=== PATIENT | male | born 1960 | race Caucasian/White ===

== ENCOUNTER 2017-03-30 23:39 | Emergency (ER) | payer SELFPAY ==
[~2017-03-30] VITALS: Ht 172.7 cm; Wt 58.0 kg
[~2017-03-30 23:39] MED LIST: SYMB160A INH; VENTAER INH
[2017-03-30 23:43] VITALS: BP 165/95; PULSE 78; RESP 32; O2SAT 91
[2017-03-30 23:44] VITALS: BP 182/104; PULSE 79; RESP 24; TEMP 98.1; O2SAT 94
--- NOTE | 2017-03-30 23:49 | PD ---
HPI Chief Complaint: Respiratory Distress Time Seen by Provider: 23:43 Travel History International Travel<30 days: No Contact w/Intl Traveler<30days: No Traveled to known affect area: No History of Present Illness HPI The patient is a 57 year old male who presents to the [facility] emergency department with a history of shortness of breath. The patient has a known history of COPD. The patient reports that he is currently out of his rescue inhaler. The patient is initially difficult to obtain a history from due to shortness of breath. The patient has difficulty completing sentences. The patient is noted to have tripoding with accessory muscle use. Once the patient was able to provide more history and was feeling improved after nebulizer treatments, the patient reports that he ran out of his inhalers a month ago. He reports that he has been occasionally borrowing other peoples inhalers. He reports that a week ago he quit smoking. At the most he has had 2 cigarettes per day a week ago. The patient denies having a primary care physician. He reports that his COPD became much worse 4 days ago when he developed a clear rhinorrhea, cough productive of clear sputum, and a mild sore throat. The patient reports that he does have a history of cocaine use. He denies having any chest pain, however he reports tightness with taking a deep breath. Otherwise on review of systems, the patient denies having any known recent fevers,neck pain, abdominal pain, vomiting, diarrhea, urinary symptoms, or neurologic symptoms. [facility] Past Medical History Narrative Medical The patient's past medical history is significant for COPD, anxiety disorder, cocaine use Blood Disorders: No Anxiety: Yes Depression: No Cancer: No Cardiovascular Problems: No COPD: Yes Endocrine: No Genitourinary: No Immune Disorder: No Musculoskeletal: No Neurologic: No Psychiatric: No Reproductive: No Respiratory: Yes Past Surgical History Narrative Surgical The patient's past surgical history is significant for right elbow surgery. Abdominal Surgery: No Cardiac Surgery: No Ear Surgery: No Endocrine Surgery: No Eye Surgery: No Genitourinary Surgery: No Gynecologic Surgery: No Oral Surgery: No Thoracic Surgery: No Social History Alcohol Use: No Tobacco Use: No Substance Use: No Allergies-Medications (Allergen,Severity, Reaction): Coded Allergies: No Known Allergies (Unverified , 03/30/17) Reported Meds & Prescriptions Reported Meds & Active Scripts Active Levaquin (Levofloxacin) 750 Mg Tablet 750 Mg PO DAILY 9 Days Medrol Dosepak (Methylprednisolone) 4 Mg Dspk 4 Mg PO DIRECTED Per Pharmacist direction Ventolin Hfa 18 GM Inh (Albuterol Sulfate) 90 Mcg/Act Aer 2 Puff INH Q4-6H PRN Symbicort Inh (Budesonide/Formoterol Fumarate) 160-4.5 Mcg/Act Aero 1 Puff INH Q12HR Review of Systems Except as stated in HPI: all other systems reviewed are Neg General / Constitutional: No: Fever Eyes: No: Visual changes HENT: No: Headaches Cardiovascular: Positive: Chest Pain or Discomfort (chest tightness), Dyspnea on exertion Respiratory: Positive: Cough, Shortness of Breath Gastrointestinal: No: Abdominal Pain Genitourinary: No: Dysuria Musculoskeletal: No: Pain Skin: No Rash Neurologic: No: Weakness, Focal Abnormalities, Change in Mentation, Slurred Speech, Sensory Disturbance Psychiatric: No: Depression Endocrine: No: Polydipsia Hematologic/Lymphatic: No: Easy Bruising Physical Exam Narrative General: The patient is a well-developed well-nourished male, acutely short of breath with conversational dyspnea, tripoding and accessory muscle use. Head and Neck exam: Head is normocephalic atraumatic. Eyes: EOMI, pupils are equal round and reactive to light. Nose: Midline septum with pink mucous membranes Mouth: Dentition unremarkable. Moist mucus membranes. Posterior oropharynx is not erythematous. No tonsillar hypertrophy. Uvula midline. Airway patent. Neck: No palpable lymphadenopathy. No nuchal rigidity. No thyromegaly. Cardiovascular: Regular rate and rhythm without murmurs, gallops, or rubs. Lungs: Expiratory wheezes audible throughout bilateral lung pimentel anteriorly and posteriorly with a prolonged expiratory phase of breathing, accessory muscle use , tripoding also noted. The patient has no paroxysmal abdominal breathing. Abdomen: Soft, without tenderness to palpation in all 4 quadrants of the abdomen. No guarding, rebound, or rigidity. Normal bowel sounds are audible. No tenderness on palpation of McBurney's point. Extremities: No clubbing, cyanosis, or edema. 2+ pulses in all 4 extremities. No calf tenderness on palpation. Back: No costovertebral angle tenderness to palpation. Neurologic Exam: Grossly nonfocal. Skin Exam: No rash noted. Intact skin that is warm and dry. Data Data Last Documented VS Vital Signs Date Time Temp Pulse Resp B/P (MAP) Pulse Ox O2 Delivery O2 Flow Rate FiO2 03/30/17 23:57 77 20 98 Nasal Cannula 4.00 03/30/17 23:44 98.1 Orders Orders Complete Blood Count With Diff (03/30/17:52) Comprehensive Metabolic Panel (03/30/17:52) B-Type Natriuretic Peptide (03/30/17:52) Act Partial Throm Time (Ptt) (03/30/17:52) Prothrombin Time / Inr (Pt) (03/30/17:52) Magnesium (Mg) (03/30/17:52) Ckmb (Isoenzyme) Profile (03/30/17) Troponin I (03/30/17) Urinalysis - C+S If Indicated (03/30/17:52) Iv Access Insert/Monitor (03/30/17:52) Electrocardiogram (03/30/17:) Ecg Monitoring (03/30/17) Oximetry (03/30/17:) Oxygen Administration (03/30/17:52) Chest, Single Ap (03/30/17:52) Sodium Chloride 0.9% Flush (Ns Flush) (03/31/17 00:00) Methylprednisolone So Succ Inj (Solumedr (03/31/17 00:00) Albuterol-Ipratropium Neb (Duoneb Neb) (03/31/17 00:00) CKMB (03/31/17 00:01) CKMB% (03/31/17 00:01) Levofloxacin 500 Mg Premix Inj (Levaquin (03/31/17 02:15) Ed Discharge Order (03/31/17 02:51) Labs Laboratory Tests Test 03/31/17 00:01 White Blood Count 8.4 TH/MM3 Red Blood Count 5.49 MIL/MM3 Hemoglobin 17.8 GM/DL Hematocrit 52.2 % Mean Corpuscular Volume 95.2 FL Mean Corpuscular Hemoglobin 32.4 PG Mean Corpuscular Hemoglobin Concent 34.0 % Red Cell Distribution Width 13.3 % Platelet Count 252 TH/MM3 Mean Platelet Volume 8.6 FL Neutrophils (%) (Auto) 38.1 % Lymphocytes (%) (Auto) 24.7 % Monocytes (%) (Auto) 9.8 % Eosinophils (%) (Auto) 24.5 % Basophils (%) (Auto) 2.9 % Neutrophils # (Auto) 3.2 TH/MM3 Lymphocytes # (Auto) 2.1 TH/MM3 Monocytes # (Auto) 0.8 TH/MM3 Eosinophils # (Auto) 2.1 TH/MM3 Basophils # (Auto) 0.2 TH/MM3 CBC Comment DIFF FINAL Differential Comment Prothrombin Time 10.8 SEC Prothromb Time International Ratio 1.0 RATIO Activated Partial Thromboplast Time 30.0 SEC Blood Urea Nitrogen 13 MG/DL Creatinine 1.14 MG/DL Random Glucose 84 MG/DL Total Protein 9.2 GM/DL Albumin 4.3 GM/DL Calcium Level 9.5 MG/DL Magnesium Level 2.1 MG/DL Alkaline Phosphatase 79 U/L Aspartate Amino Transf (AST/SGOT) 37 U/L Alanine Aminotransferase (ALT/SGPT) 38 U/L Total Bilirubin 0.3 MG/DL Sodium Level 137 MEQ/L Potassium Level 4.6 MEQ/L Chloride Level 104 MEQ/L Carbon Dioxide Level 28.7 MEQ/L Anion Gap 4 MEQ/L Estimat Glomerular Filtration Rate 67 ML/MIN Total Creatine Kinase 336 U/L Creatine Kinase MB 6.8 NG/ML Creatine Kinase MB % 2.0 % Troponin I LESS THAN 0.02 NG/ML B-Type Natriuretic Peptide 13 PG/ML MDM Medical Decision Making Medical Screen Exam Complete: Yes Emergency Medical Condition: Yes Medical Record Reviewed: Yes Interpretation(s) Last Impressions Chest X-Ray 03/30/17 1944 Signed Impressions: Service Date/Time: Thursday, March 30, 2017 23:56 - CONCLUSION: No acute disease. Tariq Kaur MD Differential Diagnosis COPD exacerbation, versus pneumonia, versus new-onset congestive heart failure, versus pulmonary embolism, versus acute coronary syndrome Narrative Course During the course of the patients emergency department visit, the patients history, examination, and differential diagnosis were reviewed with the patient. The patient was placed on a cardiac catheterization technician with oximetry and frequent blood pressure monitoring. The patient had IV access obtained and blood work sent for analysis. The patient was placed on a cardiac catheterization technician with oximetry and blood pressure monitoring. An ECG was done on arrival. The patient's ECG reveals a sinus rhythm heart rate of 71, no acute ST segment elevation or depression, T waves are inverted in V1. The patient was initially provided Solu-Medrol 125 mg IV, DuoNeb 3. On reexamination, the patient is resting comfortably, good air movement. The patient is able to provide his history. Wheezing has resolved. The patient was given Levaquin 750 mg IV 1. The patients laboratory studies were reviewed and remarkable for a white count of 8.4, hemoglobin 17.8, platelets 252 with 9.8 monocytes, CMP is remarkable for an anion gap of 4, GFR 67, CPK 336 with an MB percent of 2, troponin I less than 0.02, BNP is 13, PT PTT within normal limits Radiology studies were reviewed and remarkable for a chest x-ray that shows no acute cardiopulmonary disease. The patient will be discharged home with refills of his rescue inhaler, Symbicort. The patient will be given a prescription for Levaquin and a Medrol Dosepak taper. The patient is instructed to follow-up with a [facility] regarding his primary care. The patient is resting comfortably and feels better, is alert and in no distress. The patients results and examination findings were discussed with the patient. The repeat examination is unremarkable and benign. The history, exam, diagnostic testing, and current condition do not suggest any significant pathology to warrant further testing, continued ED treatment, admission, or surgical evaluation at this point. The vital signs have been stable. The patient does not have uncontrollable pain, intractable vomiting, or other significant symptoms. The patient's condition is stable and appropriate for discharge. The patient will pursue further outpatient evaluation with a primary care physician or other designated or consulting physician as indicated in the discharge instructions. The patient expressed understanding and was agreeable with this plan. Diagnosis Primary Impression: COPD exacerbation Additional Impression: Bronchitis Referrals: [facility] Primary Care Physician Patient Instructions: Acute Bronchitis (ED), COPD (Chronic Obstructive Pulmonary Disease) (ED), General Instructions Med/Other Pt SpecificInfo: Prescription(s) given Scripts Levofloxacin (Levaquin) 750 Mg Tablet 750 MG PO DAILY for Infection for 9 Days, #9 TAB 0 Refills Prov: Gabriella Hampton MD 03/31/17 Methylprednisolone Dosepak (Medrol Dosepak) 4 Mg Dspk 4 MG PO DIRECTED, #1 DSPK 0 Refills Per Pharmacist direction Prov: Gabriella Hampton MD 03/31/17 Albuterol 18 GM Inh (Ventolin Hfa 18 GM Inh) 90 Mcg/Act Aer 2 PUFF INH Q4-6H Y for SHORTNESS OF BREATH, #1 INHALER 3 Refills Prov: Gabriella Hampton MD 03/31/17 Budesonide-Formoterol Inh (Symbicort Inh) 160-4.5 Mcg/Act Aero 1 PUFF INH Q12HR, #1 INHALER 3 Refills Prov: Gabriella Hampton MD 03/31/17 Disposition: 01 DISCHARGE HOME Condition: Stable Gabriella Hampton MD Mar 30, 2017 23:49
[2017-03-30 23:57] VITALS: PULSE 77; RESP 20; O2SAT 98
[2017-03-31] MEDS ORDERED: SODIUM CHLORIDE 0.9% FLUSH 10 ML FLUSH IVF PRN
[2017-03-31] MEDS ORDERED: methylPREDNISolone SOD SUCC 125 MG/2 ML VIAL IV PUSH ONE
[2017-03-31] MEDS: RESP: ALBUTEROL 2.5 MG/IPRATROPIUM 0.5 MG NEB (SCH) INH ×2 (00:13→00:14)
--- NOTE | 2017-03-31 00:16 | RADRPT ---
EXAM DATE/TIME: 03/30/2017 23:56 [facility] COMPARISON: CHEST SINGLE AP, March 15, 2016, 17:32. INDICATIONS : Shortness of breath. MEDICAL HISTORY : Chronic obstructive pulmonary disease. SURGICAL HISTORY : None. ENCOUNTER: Initial ACUITY: 1 day PAIN SCORE: 0/10 LOCATION: Bilateral chest FINDINGS: A single view of the chest demonstrates the lungs to be hyperaerated without evidence of mass, infilt rate or effusion. The cardiomediastinal contours are unremarkable. Osseous structures are intact. CONCLUSION: No acute disease. Tariq Kaur MD on March 31, 2017 at 0:14 Board Certified Radiologist. This report was verified electronically.
[2017-03-31 00:22] LABS: AUTOMATED NEUTROPHIL # 3.2 TH/MM3 (1.8-7.7); BASOPHIL # 0.2 TH/MM3 (0-0.2); BASOPHIL % 2.9 % (0.0-2.0); EOSINOPHIL # 2.1 TH/MM3 (0-0.4); EOSINOPHIL % 24.5 % (0.0-4.0); HEMATOCRIT 52.2 % (39.0-51.0); HEMO FLAGS DIFF FINAL; LYMPH % 24.7 % (9.0-44.0); LYMPHOCYTE # 2.1 TH/MM3 (1.0-4.8); MEAN CELL VOLUME 95.2 FL (80.0-100.0); MEAN CORPUSCULAR HEMOGLOBIN 32.4 PG (27.0-34.0); MONO % 9.8 % (0.0-8.0); NEUT % 38.1 % (16.0-70.0); PLATELET COUNT 252 TH/MM3 (150-450); RED BLOOD COUNT 5.49 MIL/MM3 (4.50-5.90); RED CELL DISTRIBUTION WIDTH 13.3 % (11.6-17.2); WHITE BLOOD COUNT 8.4 TH/MM3 (4.0-11.0)
[2017-03-31 00:32] LABS: PROTHROMBIN TIME - PATIENT 10.8 SEC (9.8-11.6)
[2017-03-31 00:34] LABS: ALT (GPT) 38 U/L (12-78)
[2017-03-31 00:41] LABS: ALKALINE PHOSPHATASE 79 U/L (45-117); ANION GAP 4 MEQ/L (5-15); AST (GOT) 37 U/L (15-37); BICARBONATE 28.7 MEQ/L (21.0-32.0); BLOOD UREA NITROGEN 13 MG/DL (7-18); CHLORIDE 104 MEQ/L (98-107); CREATINE KINASE 336 U/L (39-308); GLOMERULAR FILTRATION RATE 67 ML/MIN (>89); MAGNESIUM 2.1 MG/DL (1.5-2.5); SODIUM (NA) 137 MEQ/L (136-145); TOTAL BILIRUBIN ADULT 0.3 MG/DL (0.2-1.0)
[2017-03-31 00:45] LABS: POTASSIUM 4.6 MEQ/L (3.5-5.1)
[2017-03-31 00:58] LABS: CKMB 6.8 NG/ML (0.5-3.6)
[2017-03-31] MEDS ORDERED: LEVOFLOXACIN 500 MG PREMIX INJ 100 ML IV ONE (02:15)
[2017-03-31] MEDS ORDERED: LEVA750T9 PO (02:52)
[2017-03-31] MEDS ORDERED: MEDR4PAK PO (02:52)
[2017-03-31] MEDS ORDERED: VENTAER INH (02:52)
[2017-03-31] MEDS ORDERED: SYMB160A INH (02:52)
[2017-03-31 03:48] VITALS: BP 126/80; PULSE 65; RESP 18; O2SAT 95
[2017-03-31 03:58] VITALS: RESP 18; O2SAT 97
--- NOTE | 2017-03-31 21:24 | EKG ---
Date Performed: 03/30/2017 Time Performed: 23:50:34 PTAGE: 57 years EKG: Sinus rhythm NORMAL EKG Compared to prior tracing no significant change DOCTOR: Huan Toscano Interpretating Date/Time 03/31/2017 21:23:46
== END 2017-03-31 04:06 | disposition home or self-care (01) ==
LOC: NEPC 23:39
DX: J44.1 Chronic obstructive pulmonary disease with (acute) exacerbation (principal); J20.9 Acute bronchitis, unspecified; F41.9 Anxiety disorder, unspecified
CPT/HCPCS: 71010; 80053; 82550; 82552; 83735; 83880; 84484; 85025; 85610; 85730; 93005; 94640; 94664; 96365; 96375; 99285; J1956; J2930